=== PATIENT | female | born 1955 | race Two or more races ===

== ENCOUNTER 2018-08-06 11:18 | Outpatient (CLI) | payer OTHER | END 2018-08-06 11:30 | disposition home or self-care (01) | LOC: RAD 501 11:18 | DX: M75.31 Calcific tendinitis of right shoulder (principal) ==

== ENCOUNTER 2018-08-07 09:41 | Outpatient (CLI) | payer OTHER | END 2018-08-07 10:15 | disposition home or self-care (01) | LOC: LAB 09:41 | DX: E55.0 Rickets, active (principal); E78.00 Pure hypercholesterolemia, unspecified; D50.8 Other iron deficiency anemias; E04.1 Nontoxic single thyroid nodule; R10.13 Epigastric pain ==

== ENCOUNTER → 2018-08-11 10:04 | Outpatient (CLI) | payer OTHER | END | disposition home or self-care (01) | LOC: LAB 10:04 | DX: E55.0 Rickets, active (principal); E78.00 Pure hypercholesterolemia, unspecified; D50.8 Other iron deficiency anemias; E04.1 Nontoxic single thyroid nodule; R10.13 Epigastric pain ==

== ENCOUNTER 2023-02-25 12:23 | Outpatient (CLI) | payer OTHER | END 2023-02-25 12:26 | disposition home or self-care (01) | LOC: MAMO-SONO 12:23 | PROVIDERS: ATTEND Obstetrics & Gynecology Obstetrics | DX: Z12.31 Encounter for screening mammogram for malignant neoplasm of breast (principal); N60.11 Diffuse cystic mastopathy of right breast; N60.12 Diffuse cystic mastopathy of left breast; N85.00 Endometrial hyperplasia, unspecified; E04.9 Nontoxic goiter, unspecified; J40 Bronchitis, not specified as acute or chronic ==

== ENCOUNTER 2023-02-25 12:50 | Outpatient (CLI) | payer OTHER | END 2023-02-25 12:51 | disposition home or self-care (01) | LOC: NUCLEAR 12:50 | PROVIDERS: ATTEND Obstetrics & Gynecology Obstetrics | DX: M81.0 Age-related osteoporosis without current pathological fracture (principal) ==

== ENCOUNTER 2024-05-24 10:18 | Outpatient (CLI) | payer OTHER | END 2024-05-24 10:23 | disposition home or self-care (01) | LOC: MAMO-SONO 10:18 | DX: Z12.31 Encounter for screening mammogram for malignant neoplasm of breast (principal) ==